=== PATIENT | female | born 1980 | race Caucasian/White ===

== ENCOUNTER 2020-06-01 11:12 | Outpatient (REF) | payer MEDICAID, SELFPAY | END 2020-06-01 11:13 | disposition home or self-care (01) | LOC: HO.LAB 11:12 | PROVIDERS: PCP Student in an Organized Health Care Education/Training Program; Visit Provider Internal Medicine | DX: Z20.828 Contact with and (suspected) exposure to other viral communicable diseases (principal) | CPT/HCPCS: 87635 ==

== ENCOUNTER 2021-04-05 12:56 | Outpatient (REF) | payer MEDICAID, SELFPAY ==
--- NOTE | ~2021-04-05 | XR_ITS ---
EXAMINATION: XR SACRUM AND COCCYX CLINICAL INFORMATION: Trauma, pain COMPARISON: Axial CT pelvis 11/17/2007 TECHNIQUE: 2 views of the sacrum and 2 views of the coccyx were obtained. FINDINGS: The sacrum and sacroiliac joints are unremarkable. There is no fracture or arthropathy. The distal coccyx segment shows posterior angulation of uncertain clinical significance. There is no visible fracture or destructive process. Variability of the coccyx angulation is a common finding. The axial CT from 2007 may suggest similar finding. This may be correlated with patient's symptoms and clinical exam. XR/XR sacrum coccyx min 2V IMPRESSION: 1. No fracture or arthropathy. 2. Distal coccyx segment angled posteriorly, likely similar to axial CT 2007. Recommend correlation with patient's symptoms and clinical exam.
== END 2021-04-05 12:57 | disposition home or self-care (01) ==
LOC: HO.XRAY 12:56
PROVIDERS: Absent Provider Student in an Organized Health Care Education/Training Program; PCP Student in an Organized Health Care Education/Training Program; Visit Provider Nurse Practitioner Primary Care
DX: M53.3 Sacrococcygeal disorders, not elsewhere classified (principal)
CPT/HCPCS: 72220

== ENCOUNTER 2023-03-02 14:09 | Outpatient (REF) | payer MEDICAID, SELFPAY ==
--- NOTE | ~2023-03-02 | XR_ITS ---
EXAMINATION: XR ANKLE, RIGHT CLINICAL INFORMATION: Acute right ankle pain. COMPARISON: None available. TECHNIQUE: AP, lateral, and mortise views of the right ankle. FINDINGS: The ankle joint and mortise are intact. There is no acute fracture or dislocation. The joint spaces are unremarkable. The tarsal bones are normally aligned. There is mild soft tissue swelling. XR/XR ankle RT 2V IMPRESSION: Mild soft tissue swelling without acute underlying osseous abnormality.
== END 2023-03-02 14:10 | disposition home or self-care (01) ==
LOC: HO.XRAY 14:09
PROVIDERS: Visit Provider Internal Medicine
DX: M25.571 Pain in right ankle and joints of right foot (principal)
CPT/HCPCS: 73600

== ENCOUNTER 2023-05-29 08:50 | Outpatient (REF) | payer MEDICAID, SELFPAY ==
[2023-05-29 14:44] LABS: Anion Gap 12 (12-20); Blood Urea Nitrogen 11 mg/dL (9-16); Calcium 9.4 mg/dL (8.4-10.2); Carbon Dioxide 23 mmol/L (22-29); Chloride 107 mmol/L (96-108); Estimated Glomerular Filt Rate > 60; Glucose Fasting 70 mg/dL (60-99); Potassium 4.3 mmol/L (3.3-5.1); Sodium 138 mmol/L (135-145)
[2023-05-29 14:46] LABS: Appearance Urine Clear; Color Urine Yellow; Glucose Urine UA Negative (Negative); Leukocyte Esterase Urine Negative (Negative); Nitrite Urine Negative (Negative); Specific Gravity - Urine 1.015 (1.005-1.025); Urine Blood Negative (Negative); Urine Ketones Negative (Negative); Urine Protein Negative (Neg-Trace)
== END 2023-05-29 08:51 | disposition home or self-care (01) ==
LOC: HO.CHCLDS 08:50
PROVIDERS: Visit Provider Student in an Organized Health Care Education/Training Program
DX: R35.0 Frequency of micturition (principal)
CPT/HCPCS: 36415; 80048; 81003

== ENCOUNTER 2023-08-13 13:36 | Outpatient (REF) | payer OTHER, SELFPAY | END 2023-08-13 13:37 | disposition home or self-care (01) | LOC: HO.HHCL 13:36 | PROVIDERS: Visit Provider Student in an Organized Health Care Education/Training Program | DX: R10.11 Right upper quadrant pain (principal); D50.9 Iron deficiency anemia, unspecified; H57.89 Other specified disorders of eye and adnexa | CPT/HCPCS: 36415; 80053; 83690; 84443; 85025 ==

== ENCOUNTER 2023-11-12 16:31 | Outpatient (REF) | payer OTHER, SELFPAY ==
[2023-11-17 19:12] LABS: Acetylcholine Recept. Blocking <15 (<15)
== END 2023-11-12 16:32 | disposition home or self-care (01) ==
LOC: HO.CHCLDS 16:31
PROVIDERS: Visit Provider Family Medicine
DX: H57.9 Unspecified disorder of eye and adnexa (principal)
CPT/HCPCS: 36415; 86041; 86042; 86255

== ENCOUNTER 2024-05-19 11:11 | Outpatient (REF) | payer SELFPAY ==
[2024-05-22 07:33] LABS: TS Negative Control Passed; TS Panel A 0; TS Panel B 0; TS Positive Control Passed; TSpotTB Negative (Negative)
== END 2024-05-19 11:12 | disposition home or self-care (01) ==
LOC: HO.CHCLDS 11:11
PROVIDERS: Visit Provider Student in an Organized Health Care Education/Training Program
DX: Z11.1 Encounter for screening for respiratory tuberculosis (principal)
CPT/HCPCS: 36415; 86481

== ENCOUNTER 2025-05-18 19:03 | Outpatient (REF) | payer SELFPAY | END 2025-05-18 19:04 | disposition home or self-care (01) | LOC: HO.HHCLNP 19:03 | PROVIDERS: Visit Provider Internal Medicine | DX: J02.9 Acute pharyngitis, unspecified (principal) | CPT/HCPCS: 87070 ==